=== PATIENT | male | born 1955 | race Caucasian/White ===

== ENCOUNTER 2023-01-24 06:48 | Day surgery (SDC) | payer OTHER ==
[~2023-01-24] VITALS: Ht 165.1 cm; Wt 72.6 kg
[~2023-01-24 06:48] MED LIST: HYDROCHLOROT25 MG PO; LISINOPRIL10 MG PO
[2023-01-24] MEDS ORDERED: CIPROFLOXACN500 MG PO (08:58)
[2023-01-24 09:36] VITALS: BP 125/82
== END 2023-01-24 09:30 | DRG 948 ==
LOC: ORM 06:48
PROVIDERS: ATTEND Urology
PROC: 0VB03ZX Excision of Prostate, Percutaneous Approach, Diagnostic (ICD-10-PCS; principal; 2023-01-24)
DX: R97.20 Elevated prostate specific antigen [PSA] (principal); N13.8 Other obstructive and reflux uropathy; N40.1 Benign prostatic hyperplasia with lower urinary tract symptoms; I10 Essential (primary) hypertension
CPT/HCPCS: J1956